=== PATIENT | female | born 1965 | race American Indian/Alaskan Native ===

== ENCOUNTER 2016-11-22 06:03 | Day surgery (SDC) | payer BC ==
[~2016-11-22 06:03] MED LIST: ANCEF/STERILE WATER 2 GM/20 ML 2 GM/20 ML SYRINGE IV NR; NACL 0.9% 1000 ML 1,000 ML IV SCH; PEPCID PO NR
[2016-11-22] MEDS ORDERED: NACL BACTERIOSTATIC INFILTRATI ONE (06:38)
[2016-11-22] MEDS ORDERED: PAPAVERINE ONE (07:11)
[2016-11-22] MEDS ORDERED: HEPARIN 10,000 UNITS/10 ML ONE ×2 (07:12→09:12)
[2016-11-22] MEDS ORDERED: XYLOCAINE 1%/ EPI 1:100,000 INFILTRATI ONE ×2 (07:12→08:38)
[2016-11-22] MEDS ORDERED: NACL 0.9% 500 ML 500 ML ONE (07:12)
[2016-11-22] MEDS ORDERED: SODIUM BICARBONATE ONE (07:12)
[2016-11-22] MEDS ORDERED: MARCAINE 0.25% INFILTRATI ONE ×2 (07:12→08:38)
--- NOTE | 2016-11-22 07:18 | Anesthesia Consultation ---
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
--- NOTE | 2016-11-22 07:19 | Anesthesia Day of Surgery ---
Anesthesia Day of Surgery - Day of Surgery Patient Examined: Yes Patient H&P Reviewed: Yes Patient is NPO: Yes
[2016-11-22 07:43] LABS: Potassium 3.7 mmol/L (3.6-5.0)
[2016-11-22] MEDS ORDERED: DIPRIVAN 10 MG/ML IV ONE ×3 (07:50→09:05)
[2016-11-22] MEDS ORDERED: DILAUDID ONE (07:51)
[2016-11-22] MEDS ORDERED: VERSED ONE (08:04)
[2016-11-22] MEDS ORDERED: DILAUDID IV PRN (08:36)
[2016-11-22] MEDS ORDERED: SODIUM BICARBONATE IV ONE (08:38)
[2016-11-22] MEDS ORDERED: NACL 0.9% 500 ML IV ONE (08:38)
[2016-11-22] MEDS ORDERED: HEPARIN 10,000 UNITS/10 ML IR ONE (08:38)
[2016-11-22] MEDS ORDERED: NACL 0.9% IR ONE (08:55)
[2016-11-22] MEDS ORDERED: NACL 0.9% 1000 ML IV ONE (08:56)
[2016-11-22] MEDS ORDERED: PAPAVERINE IV ONE (08:56)
[2016-11-22] MEDS ORDERED: XYLOCAINE MPF 2% ONE (09:12)
[2016-11-22] MEDS ORDERED: PROAIR IH ONE (09:40)
--- NOTE | 2016-11-22 09:53 | Operative Report ---
Operative Report Operative Report: Preoperative diagnosis: End-stage renal disease/dialysis dependent renal failure. Postop diagnosis: The same Procedure: Right radiocephalic arteriovenous fistula creation. Surgeon: Cuba Paul MD., RPVI Registered Public Health Nurse: none Anesthesia: Local with IV sedation/LMA EBL: 10 mL IV fluids: 650 mL Findings: Adequate size right radial artery, adequate size right cephalic vein, continues Doppler signal in the fistula. Disposition: To recovery Indications end-stage renal disease. Procedure in details: Patient was brought to the operating room and laid on the operating room table in supine position. After LMA anesthesia was achieved patient right arm was prepped and draped in the usual sterile fashion. The area in between the radial artery and cephalic vein was infiltrated with quarter percent Marcaine. The longitudinal incision between the palpated radial artery and imaged cephalic vein made using #15 blade. Subcutaneous tissue was divided with Bovie electrocautery. The right cephalic vein was dissected free. The cephalic vein was disconnected from the distal cephalic vein and controlled was bulldog. It was heparinized with heparinized saline. It was further dilated with papaverine. The right radial artery was then dissected and encircled with Vesseloops proximally and distally. Patient received 2000 units of intravenous heparin. After 3 minutes the artery was occluded with vessel clamps and arteriotomy was made using #11 blade and Alvarado scissors. The distal end of the vein was spatulated using Alvarado scissors. The anastomosis was created using a running 7-0 Prolene running suture using BV1 needle. Prior to completion the artery was flushed proximally and distally and good forward and back bleeding was seen. Then anastomosis was completed the clamps were removed. The hemostasis was excellent. The strong continuous Doppler signal was appreciated over the cephalic vein. Once it was ascertained that hemostasis was good the skin was closed using 3-0 vicryl and 4-0 monocryl sutures. Patient tolerated procedure well. He was awakened and taken to the recovery room. At the end of the case 1/4 percent Marcaine when infiltrated into the incision for postoperative pain control. All sponge and needle counts were correct.
--- NOTE | 2016-11-22 09:55 | Short Stay Summary ---
Short Stay Documentation - History H&P: obtained from office - Allergies and Medications Current Medications: Allergies lisinopril Allergy (Verified 11/20/16 11:28) COUGH levofloxacin [From Levaquin] Adverse Reaction (Verified 11/20/16 11:28) TORN ACHILLES Home Medications Medication Instructions Recorded Confirmed Last Taken Type Aspirin [Aspirin TAB] 325 mg PO QDAY 11/20/16 11/22/16 11/21/16 10:00 History Ferrous Sulfate [Feosol] 325 mg PO QDAY 11/20/16 11/22/16 11/21/16 10:00 History Insulin Aspart [NovoLOG Flexpen] 20 units SQ BS PRN 11/20/16 11/22/16 11/21/16 20:00 History 20 UNITS Insulin Glargine [Lantus] 40 units SQ BID 11/20/16 11/22/16 11/21/16 20:00 History 30 UNITS Losartan [Cozaar] 25 mg PO QDAY 11/20/16 11/22/16 11/21/16 10:00 History Metoprolol [Lopressor TAB] 50 mg PO QDAY 11/20/16 11/22/16 11/21/16 21:45 History Omeprazole 40 mg PO QDAY 11/20/16 11/22/16 11/21/16 15:00 History Active Medications Famotidine (Pepcid) 20 mg PO PREOP NR Stop: 11/22/16 23:55 Last Admin: 11/22/16 07:13 Dose: 20 mg Hydromorphone HCl (Dilaudid) 0.25 mg IV Q10MIN PRN PRN Reason: Pain, Moderate (4-6) Stop: 11/22/16 16:00 Cefazolin Sodium (Ancef/Sterile Water 2 Gm/20 Ml) 2 gm in 20 mls @ 80 mls/hr IV PREOP NR PRN Reason: Protocol Stop: 11/22/16 23:59 Sodium Chloride (Nacl 0.9% 1000 Ml) 1,000 mls @ 42 mls/hr IV DIRECT AILYN Last Admin: 11/22/16 07:20 Dose: 42 mls/hr - Brief post op/procedure progress note Procedure: Preoperative diagnosis: End-stage renal disease/dialysis dependent renal failure. Postop diagnosis: The same Procedure: Right radiocephalic arteriovenous fistula creation. Surgeon: Cuba Paul MD., RPVI Director Pediatric: none Anesthesia: Local with IV sedation/LMA EBL: 10 mL IV fluids: 650 mL Findings: Adequate size right radial artery, adequate size right cephalic vein, continues Doppler signal in the fistula. Disposition: To recovery - Disposition Condition at discharge: Good Disposition: DISCHARGED TO HOME OR SELFCARE Short Stay Discharge Plan Activity: no driving until cleared by PCP, other (no heavy lifting was right arm for 6 weeks) Diet: renal Wound: open to air Additional Instructions: Follow-up with Dr. Paul in 2 weeks. Follow up with: PRIMARY CAREMD [Primary Care Provider] - 7 Days
--- NOTE | 2016-11-22 10:46 | Post Anesthesia Evaluation ---
- Post Anesthesia Evaluation Patient Participated: Yes Airway Patent: Yes Stable Respiratory Function: Yes Temp > 96.8F: Yes Pain Manageable: Yes Adequeate Hydration: Yes Anesthesia Complications: No Block Receding Appropriately: Not Applicable
[2016-11-22] MEDS ORDERED: NEO SYNEPHRINE ONE (11:09)
[2016-11-22] MEDS ORDERED: NACL P/F VIAL (10 ML) 10 ML ONE ×2 (11:10)
[2016-11-22 11:24] VITALS: BP 129/79
[2016-11-22] MEDS ORDERED: HEPARIN IV NR (11:25)
== END 2016-11-22 12:00 | disposition home or self-care (01) ==
LOC: OR 06:03
PROVIDERS: ATTEND Surgery Vascular Surgery
DX: E11.22 Type 2 diabetes mellitus with diabetic chronic kidney disease (principal); N18.6 End stage renal disease; I12.0 Hypertensive chronic kidney disease with stage 5 chronic kidney disease or end stage renal disease; D64.9 Anemia, unspecified; E66.9 Obesity, unspecified; Z68.41 Body mass index [BMI] 40.0-44.9, adult; Z90.710 Acquired absence of both cervix and uterus; Z98.890 Other specified postprocedural states; Z79.899 Other long term (current) drug therapy; Z79.4 Long term (current) use of insulin; Z86.73 Personal history of transient ischemic attack (TIA), and cerebral infarction without residual deficits; Z99.2 Dependence on renal dialysis; Z83.3 Family history of diabetes mellitus; Z80.9 Family history of malignant neoplasm, unspecified
CPT/HCPCS: 36415; 36821; 82962; 84132; 84295; J0690; J1170; J1644; J2250; J2370; J2440; J2704; J7030; J7040

== ENCOUNTER 2017-02-07 06:00 | Day surgery (SDC) | payer BC ==
[~2017-02-07 06:00] MED LIST changes: -PEPCID PO NR
[2017-02-07] MEDS ORDERED: NACL BACTERIOSTATIC INFILTRATI ONE (06:39)
--- NOTE | 2017-02-07 06:55 | Anesthesia Day of Surgery ---
Anesthesia Day of Surgery - Day of Surgery Patient Examined: Yes Patient H&P Reviewed: Yes Patient is NPO: Yes Beta Blockers: Yes (took at 22:00 last night)
--- NOTE | 2017-02-07 06:55 | Anesthesia Consultation ---
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
[2017-02-07] MEDS ORDERED: MARCAINE 0.5% INFILTRATI ONE ×2 (07:19→08:38)
[2017-02-07] MEDS ORDERED: PROTAMINE SULFATE ONE (07:20)
[2017-02-07] MEDS ORDERED: HEPARIN 10,000 UNITS/10 ML ONE (07:20)
[2017-02-07] MEDS ORDERED: NACL 0.9% 500 ML 500 ML ONE (07:20)
[2017-02-07] MEDS ORDERED: PAPAVERINE ONE (07:20)
[2017-02-07] MEDS ORDERED: SUBLIMAZE ONE (07:32)
[2017-02-07] MEDS ORDERED: XYLOCAINE MPF 2% ONE (07:32)
[2017-02-07] MEDS ORDERED: DIPRIVAN 10 MG/ML IV ONE (07:33)
[2017-02-07] MEDS ORDERED: VERSED IV NR (08:00)
[2017-02-07] MEDS ORDERED: PEPCID PO NR (08:00)
[2017-02-07] MEDS ORDERED: HEPARIN 10,000 UNITS/10 ML IV ONE (08:37)
[2017-02-07] MEDS ORDERED: NACL 0.9% 500 ML IV ONE (08:37)
[2017-02-07] MEDS ORDERED: DECADRON ONE (09:44)
[2017-02-07] MEDS ORDERED: NEO SYNEPHRINE ONE (09:44)
[2017-02-07] MEDS ORDERED: ZOFRAN ONE (09:44)
--- NOTE | 2017-02-07 10:01 | Operative Report ---
Operative Report Operative Report: Pre-operative diagnosis: End-stage renal disease/difficulty accessing AV fistula Post-operative diagnosis: The same Procedure name(s): Right radiocephalic AV fistula revision/elevation Surgeon: Cuba Paul MD, RPVI Aircraft Engine Technician: None Anesthesia: Gen. Findings Deep left AV fistula. Fistula is easily palpated after the procedure Specimens: None EBL: 40 ml IV fluids: 600 mL Urine output: None Disposition: The recovery Procedure Patient was brought to the operating room and laid on the table in supine position. After general endotracheal anesthesia was achieved,right arm was prepped and draped in usual sterile fashion. The longitudinal incision lateral to the fistula was made using #15 blade. The wound was deepened into the separate these tissues Bovie electrocautery. The fistula was located and dissected free a along the entire upper forearm. All the branches were located , and ligated using 4-0 silk ties. The fistula was dissected completely free of investing soft tissues. The adipose layer on the medial portion of the incision was from the epidermis using Bovie electrocautery and a subcutaneous tunnel was created in which fistula was placed. The fat layer was sutured underneath the vein to the adipose layer on the other side using 3-0 Vicryl interrupted stitches the fistula was then placed right underneath the epidermis and a very thin layer of fat. The fistula was easily palpable through the skin. The incision was then closed using 3-0 Vicryl subcutaneous and 4-0 Monocryl subcuticular running stitch. Patient tolerated procedure well. At the end of the case all instrument, sponge, needle counts were correct.
--- NOTE | 2017-02-07 10:03 | Short Stay Summary ---
Short Stay Documentation - History H&P: obtained from office - Allergies and Medications Current Medications: Allergies lisinopril Allergy (Verified 11/20/16 11:28) COUGH levofloxacin [From Levaquin] Adverse Reaction (Verified 11/20/16 11:28) TORN ACHILLES Home Medications Medication Instructions Recorded Confirmed Last Taken Type Aspirin [Aspirin TAB] 325 mg PO QDAY 11/20/16 02/05/17 02/06/17 History Ferrous Sulfate [Feosol] 325 mg PO QDAY 11/20/16 02/05/17 02/06/17 History Insulin Aspart [NovoLOG Flexpen] 20 units SQ BS PRN 11/20/16 02/05/17 02/06/17 History Insulin Glargine [Lantus] 40 units SQ BID 11/20/16 02/05/17 02/06/17 History Losartan [Cozaar] 25 mg PO QDAY 11/20/16 02/07/17 02/07/17 05:30 History Metoprolol [Lopressor TAB] 50 mg PO QDAY 11/20/16 02/05/17 02/06/17 History Omeprazole 40 mg PO QDAY 11/20/16 02/05/17 02/06/17 History Cinacalcet [Sensipar] 30 mg PO QHS 02/05/17 02/05/17 02/06/17 History Active Medications Famotidine (Pepcid) 20 mg PO PREOP NR Stop: 02/07/17 20:00 Last Admin: 02/07/17 07:42 Dose: 20 mg Cefazolin Sodium (Ancef/Sterile Water 2 Gm/20 Ml) 2 gm in 20 mls @ 80 mls/hr IV PREOP NR PRN Reason: Protocol Stop: 02/07/17 23:59 Sodium Chloride (Nacl 0.9% 1000 Ml) 1,000 mls @ 42 mls/hr IV DIRECT AILYN Last Admin: 02/07/17 06:50 Dose: 42 mls/hr Midazolam HCl (Versed) 2 mg IV PREOP NR Stop: 02/07/17 23:59 Last Admin: 02/07/17 07:42 Dose: 2 mg - Brief post op/procedure progress note Procedure: Pre-operative diagnosis: End-stage renal disease/difficulty accessing AV fistula Post-operative diagnosis: The same Procedure name(s): Right radiocephalic AV fistula revision/elevation Surgeon: Cuba Paul MD, RPVI Parts Driver: None Anesthesia: Gen. Findings Deep left AV fistula. Fistula is easily palpated after the procedure Specimens: None EBL: 40 ml IV fluids: 600 mL Urine output: None Disposition: The recovery - Disposition Condition at discharge: Good Disposition: DC-01 TO HOME OR SELFCARE Short Stay Discharge Plan Activity: advance as tolerated, no driving until cleared by PCP, other (no heavy lifting with right arm for 4-6 weeks.) Wound: open to air Additional Instructions: Follow-up with Dr. Paul in 2 weeks. Follow up with: PRIMARY CAREMD [Primary Care Provider] - 7 Days
[2017-02-07] MEDS ORDERED: PERCOCET 5/325 PO ONE (12:30)
--- NOTE | 2017-02-07 12:54 | Post Anesthesia Evaluation ---
- Post Anesthesia Evaluation Patient Participated: Yes Airway Patent: Yes Stable Respiratory Function: Yes Nausea/Vomiting: No Temp > 96.8F: Yes Pain Manageable: Yes Adequeate Hydration: Yes Anesthesia Complications: No Block Receding Appropriately: Not Applicable Patient on Ventilator: No
[2017-02-07 18:26] VITALS: BP 126/70
== END 2017-02-07 13:00 | disposition home or self-care (01) ==
LOC: OR 06:00
PROVIDERS: ATTEND Surgery Vascular Surgery
DX: E11.22 Type 2 diabetes mellitus with diabetic chronic kidney disease (principal); I12.0 Hypertensive chronic kidney disease with stage 5 chronic kidney disease or end stage renal disease; N18.6 End stage renal disease; D64.9 Anemia, unspecified; E66.9 Obesity, unspecified; Z68.41 Body mass index [BMI] 40.0-44.9, adult; Z88.8 Allergy status to other drugs, medicaments and biological substances; Z99.2 Dependence on renal dialysis; Z90.710 Acquired absence of both cervix and uterus; Z98.890 Other specified postprocedural states; Z95.5 Presence of coronary angioplasty implant and graft; Z86.73 Personal history of transient ischemic attack (TIA), and cerebral infarction without residual deficits; Z79.899 Other long term (current) drug therapy; Z79.4 Long term (current) use of insulin; Z80.9 Family history of malignant neoplasm, unspecified; Z83.3 Family history of diabetes mellitus
CPT/HCPCS: 36415; 36832; 82962; 84132; J0690; J1100; J1644; J2250; J2370; J2405; J2704; J3010; J7030; J7040; J2440; J2720

== ENCOUNTER 2017-10-08 08:34 | Day surgery (SDC) | payer MEDICARE ==
[2017-10-08 10:10] LABS: Basophils % (Auto) 0.2 % (0.0-1.8); Eosinophils # (Auto) 0.2 K/mm3 (0.0-0.4); Hematocrit 30.9 % (30.3-42.9); Hemoglobin 10.3 gm/dl (10.1-14.3); Lymphocytes # (Auto) 2.2 K/mm3 (1.2-5.4); Lymphocytes % (Auto) 31.1 % (13.4-35.0); Mean Corpuscular HGB Conc 33 % (30-34); Mean Corpuscular Hemoglobin 28 pg (28-32); Mean Corpuscular Volume 85 fl (79-97); Monocytes # (Auto) 0.8 K/mm3 (0.0-0.8); Monocytes % (Auto) 11.6 % (0.0-7.3); Platelet Count 326 K/mm3 (140-440); Red Blood Count 3.64 M/mm3 (3.65-5.03); Red Cell Distribution Width 18.9 % (13.2-15.2)
[2017-10-08 10:26] LABS: Calcium 9.2 mg/dL (8.4-10.2); INR 1.18 (0.87-1.13)
[2017-10-08 10:27] LABS: Partial Thromboplastin Time 31.4 Sec. (24.2-36.6)
--- NOTE | 2017-10-08 10:57 | Short Stay Summary ---
Short Stay Documentation Date of service: 10/08/17 - History Principal diagnosis: Malfunctioning dialysis access H&P: obtained from office - Allergies and Medications Current Medications: Allergies lisinopril Allergy (Verified 11/20/16 11:28) COUGH levofloxacin [From Levaquin] Adverse Reaction (Verified 11/20/16 11:28) TORN ACHILLES Home Medications Medication Instructions Recorded Confirmed Last Taken Type Aspirin [Aspirin TAB] 325 mg PO QDAY 11/20/16 10/08/17 10/07/17 History 325mg Ferrous Sulfate [Feosol] 325 mg PO QDAY 11/20/16 10/08/17 10/07/17 History 325mg Insulin Aspart [NovoLOG Flexpen] 20 units SQ BS PRN 11/20/16 10/08/17 10/07/17 History 20units Insulin Glargine [Lantus] 40 units SQ BID 11/20/16 10/08/17 10/07/17 History 40mg Losartan [Cozaar] 25 mg PO QDAY 11/20/16 10/08/17 10/07/17 History 25mg Metoprolol [Lopressor TAB] 50 mg PO BID 11/20/16 10/08/17 10/07/17 History 50mg Omeprazole 40 mg PO QDAY 11/20/16 10/08/17 10/07/17 History 40mg Active Medications Cefazolin Sodium (Ancef/Sterile Water 2 Gm/20 Ml) 2 gm in 20 mls @ 80 mls/hr IV PREOP NR PRN Reason: Protocol Stop: 10/08/17 23:59 Sodium Chloride (Nacl 0.9% 1000 Ml) 1,000 mls @ 42 mls/hr IV DIRECT AILYN - Brief post op/procedure progress note Date of procedure: 10/08/17 Pre-op diagnosis: SVC stenosis Post-op diagnosis: same Procedure: Venoplasty of SVC Anesthesia: local Surgeon: EMANUEL ARELLANO Estimated blood loss: minimal Pathology: none Condition: stable - Disposition Condition at discharge: Good Disposition: DC-01 TO HOME OR SELFCARE Short Stay Discharge Plan Activity: advance as tolerated Weight Bearing Status: Weight Bear as Tolerated Diet: regular Wound: keep clean and dry, per your surgeon's advice Follow up with: EVELINE CUELLO MD [Primary Care Provider] - 7 Days
[2017-10-08] MEDS ORDERED: XYLOCAINE 2% INFILTRATI ONE (13:26)
[2017-10-08] MEDS ORDERED: ANCEF/STERILE WATER 2 GM/20 ML 0 GM/0 ML SYRINGE IV ONE (13:26)
[2017-10-08] MEDS ORDERED: HEPARIN/NS 5000 UNIT/500ML(CATH LAB) 1,000 ML IR ONE (13:26)
[2017-10-08] MEDS ORDERED: VERSED ONE (13:26)
[2017-10-08] MEDS ORDERED: HEPARIN 10,000 UNITS/10 ML ONE (13:26)
[2017-10-08] MEDS ORDERED: NACL 0.9% 100 ML ONE (13:27)
[2017-10-08] MEDS: SUBLIMAZE ONE ×2 (13:42→13:57)
--- NOTE | 2017-10-08 14:09 | Operative Report ---
Operative Report Operative Report: EXAM: CENTRAL VENOGRAM, VENOPLASTY OF SVC CLINICAL INDICATION: PATIENT WITH A HISTORY OF MALFUNCTIONING DIALYSIS ACCESS WITH SVC STENOSIS DATE: 10/08/2017 PROCEDURE: Following an explanation of the risks, benefits and alternatives; written informed consent was obtained. The patient was brought to the injury graphic suite and placed in supine position on the examination table. Initial ultrasound evaluation of the right groin demonstrated a patent right common femoral vein. The patient's right groin was prepped and draped in the usual sterile fashion. 1% lidocaine was used for anesthesia. Under ultrasound guidance, the right common femoral vein was cannulated with a 7 cm 18-gauge needle. A 0.035 guidewire was advanced centrally. The needle was removed and a 6 [place] vascular sheath placed. A 4 [place] vertebral catheter was advanced over the 0.035 guidewire centrally. Together the guidewire and catheter were manipulated under fluoroscopy into the right subclavian vein. Contrast was then injected which documented a widely patent right subclavian vein with 90% stenosis involving the SVC. The guidewire was advanced into the right subclavian vein and the catheter removed. A 6 [place] sheath was upsized per 9 [place] sheath. Venoplasty of the Central venous stenosis was then performed using a 12 mm x 40 mm Lutonix drug-coated balloon. The balloon was insufflated to 6 hans for 3 minutes. Post plasty imaging demonstrated reduction of the stenosis to less than 50%. At this point, the catheters, guidewires and sheaths were removed and hemostasis achieved using manual compression. A sterile dressing was then applied. The patient tolerated the procedure well. There were no immediate post procedure complications. Conscious sedation was performed under the guidance of radiologic nursing. Continuous cardiopulmonary monitoring was utilized. IMPRESSION: 1) Central venogram demonstrating 90% stenosis involving the SVC. 2 ) Venoplasty of the SVC using a 12 mm x 40 mm drug-coated balloon.
[2017-10-08 15:16] VITALS: BP 122/79
== END 2017-10-08 15:42 | disposition home or self-care (01) ==
LOC: CATHLABREC 08:34
PROVIDERS: ATTEND Radiology Diagnostic Radiology
DX: I87.1 Compression of vein (principal); I12.0 Hypertensive chronic kidney disease with stage 5 chronic kidney disease or end stage renal disease; N18.6 End stage renal disease; Z79.82 Long term (current) use of aspirin; Z79.899 Other long term (current) drug therapy; Z95.5 Presence of coronary angioplasty implant and graft; Z88.8 Allergy status to other drugs, medicaments and biological substances; Z88.1 Allergy status to other antibiotic agents; Z99.2 Dependence on renal dialysis
CPT/HCPCS: 36415; 37248; 76937; 80048; 82962; 85025; 85610; 85730; C1769; C1894; J0690; J1644; J2250; J3010; Q9967